=== PATIENT | female | born 1930 | race African-American/Black ===

== ENCOUNTER 2020-06-30 15:30 | Inpatient (IN) | payer MEDICARE, OTHER ==
--- NOTE | 2020-06-30 16:37 | CT ---
CT of abdomen and pelvis: 06/30/2020 COMPARISON: None available HISTORY: Nausea, vomiting, abdominal pain TECHNIQUE: Axial CT imaging at 5 mm intervals from lung bases through pubic symphysis without contras t. Coronal reformatted imaging obtained. FINDINGS: Lack of contrast media limits assessment of the viscera, bowel, vascular structures, and fo r lymphadenopathy. There is a partially visualized groundglass nodule within the right lower lobe on axial image 1 measu ring 1 cm. No free intraperitoneal air or fluid is seen. There is a small hypodense lesion within the left lobe of the liver on axial image 14, too small to c haracterize, measuring in the 5 mm range. Multiple calcified stones are noted within the gallbladder lumen. The spleen, pancreas, adrenal glands, and kidneys demonstrate no acute findings. No nephrolithiasis o r evidence of obstructive uropathy is seen on either side. Limited assessment of the bowel demonstrates no evidence for inflammatory change or obstruction. Sigmoid diverticulosis present with no evidence for diverticulitis. Review of the osseous structures demonstrates multilevel lower lumbar spine facet hypertrophic change . Multilevel disc space narrowing degenerative endplate change and osteophyte formation noted, most pro minent at L4-5. IMPRESSION: No nephrolithiasis or obstructive uropathy. 1 cm groundglass nodule within the right lower lobe for which follow-up nonemergent chest CT is advis ed. Cholelithiasis.
[2020-06-30] MEDS ORDERED: Ondansetron PF 4 MG/2 ML Vial IVP PRN (16:58)
[2020-06-30] MEDS ORDERED: Guaifenesin DM 100-10/5 ML UDCUP PO PRN (16:58)
--- NOTE | 2020-06-30 17:32 | HP ---
REASON FOR ADMISSION: Severe dehydration, gastroenteritis, acute kidney injury, anemia. HISTORY OF PRESENTING ILLNESS: The patient gives history of having severe diarrhea, which started this morning. She had multiple episodes and finally became incontinent as she got tired going to the restroom. She got into shower finally to get a good bath, but got dizzy. She managed to come out and called out for help. They tried to take her to her bedroom, but she was very weak and the daughter made her lie on the floor in a safe manner without fall. The patient also admits to vomiting nearly 3 times. No blood in the stool or vomitus. No other family members have had these symptoms. No exposure to COVID as far as she knows. She is currently living with her daughter for last 3 months or so. Prior to that, she was living in [place] in her own apartment. She has had prior colonoscopy, but she does not recall how far back. There was no malignancy noted in any of her previous colonoscopies. PAST MEDICAL AND SURGICAL HISTORY: History of CHF, GERD, hypertension, C-spine surgery, hysterectomy. CURRENT MEDICATIONS: The patient is on, 1. Candesartan/hydrochlorothiazide 32/12.5 mg daily. 2. Hydralazine 50 mg three times daily. 3. Omeprazole 20 mg daily. 4. Amlodipine 10 mg daily. 5. Lasix 20 mg daily. ALLERGIES: NO KNOWN DRUG ALLERGIES. PERSONAL HISTORY: Does not abuse alcohol or drugs. No history of smoking. She is currently living with her daughter. FAMILY HISTORY: Mother in her 60s. She had history of stroke. Father at the age of 98. He had history of acute renal failure before . The patient ambulates with a cane in the house. CODE STATUS: Full. Power of attorney general is her daughter, Ms. Bri Hernandez. REVIEW OF SYSTEMS: CONSTITUTIONAL: Negative for weight loss or gain, ability to conduct usual activities. SKIN: Negative for rash, itching. EYES: Negative for double vision, pain. ENT/MOUTH: Negative for nose bleeding, neck stiffness, pain, tenderness. CARDIOVASCULAR: Negative for palpitations, dyspnea on exertion, orthopnea. RESPIRATORY: Negative for shortness of breath, wheezing, cough, hemoptysis, fever or night sweats. GASTROINTESTINAL: Negative for poor appetite, abdominal pain, heartburn, nausea, vomiting, constipation, or diarrhea. GENITOURINARY: Negative for urgency, frequency, dysuria, nocturia. MUSCULOSKELETAL: Negative for pain, swelling. NEUROLOGIC/PSYCHIATRIC: Negative for anxiety, depression. ALLERGY/IMMUNOLOGIC: Negative for skin rash, bleeding tendency. PHYSICAL EXAMINATION: GENERAL: The patient is an 89-year-old female, who is currently not in any acute distress. VITAL SIGNS: Blood pressure 140/80, pulse 66 per minute, respiratory rate 16 per minute, temperature 97.5 degrees Fahrenheit, and saturating 100% on room air. NECK: Supple. No elevated JVD. HEENT: Eyes; extraocular muscles intact. Pupils reacting to light. Oral cavity, mucous membranes are dry. No exudates or congestion. CARDIOVASCULAR: S1 and S2 heard. Murmur plus. RESPIRATORY: Air entry 1+ bilateral. Scattered rhonchi. No rales or wheezes. ABDOMEN: Soft. Bowel sounds heard. No tenderness, rigidity, or guarding. EXTREMITIES: No peripheral edema or calf tenderness. VASCULAR: Peripheral pulses 1+ bilateral. No ischemic ulcers or gangrene. CENTRAL NERVOUS SYSTEM: No gross focal motor deficits noted. The patient is alert and oriented well. PSYCHIATRIC: The patient's mood is euthymic. No hallucinations or delusions. LABORATORY DATA: White count of 15, H and H 7.7 and 25, platelet count is 431, MCV is 102 with 83% neutrophils. Serum bicarb 23, BUN 46, creatinine 2.1, serum bicarb 23, serum glucose 166. BNP 485. Liver enzymes within normal limits. UA is negative for any infection. CT of the abdomen and pelvis without contrast done showed no nephrolithiasis or obstructive uropathy. There is 1 cm ground-glass nodule in the right lower lobe. Cholelithiasis was seen. Degenerative disk disease was seen. Sigmoid diverticulosis without evidence of diverticulitis. CT brain without contrast done showed possible meningioma in the region of the planum sphenoidale/cribriform plate. There were no other acute findings. CLINICAL IMPRESSION AND PLAN: The patient will be admitted to telemetry for severe dehydration with gastroenteritis and acute kidney injury. The patient does not recollect what her previous hemoglobin levels were. Her current level is 7.7 g and we will obtain q.6 hourly H and H. She will be on Protonix 40 mg IV q.12. We will also obtain stool studies including C diff. COVID-19 viral PCR will also be obtained. She will be on Cipro and Flagyl for possible gastroenteritis. None of her family members have had similar diarrhea or vomiting. We will continue her on Norvasc, hydralazine, and gently hydrate her with lactated Ringer's at 100 mL per hour. This is in view of her BNP being around 450. She will need close monitoring on telemetry, so as not to overload her with history of CHF and current severe dehydration and acute kidney injury. Job ID: [id number]
[2020-06-30 17:58] LABS: Iron Binding Capacity, Total 158 mcg/dL (265-497)
[2020-06-30 17:59] LABS: Iron 49 ug/dL (50-170)
[2020-06-30 18:27] LABS: Ferritin 599.41 ng/mL (10-291)
[2020-06-30 20:30] LABS: Hemoglobin 7.9 g/dL (12.0-16.0)
[2020-06-30] MEDS: hydrALAZINE 25 MG TAB PO SCH ×2 (21:15→21:29)
[2020-06-30] MEDS: Lactated Ringer's 1,000 ML IV SCH (21:20)
[2020-06-30] MEDS: metroNIDAZOLE 250 MG in Admixture Fee 2 EACH IVPB SCH (21:20)
[2020-06-30] MEDS: Pantoprazole 40 MG VIAL IVP SCH (21:29)
[2020-06-30] MEDS: Ciprofloxacin Lactate/D5W 200 MG in Premix Bag 1 BAG IVPB SCH (22:50)
[2020-07-01] MEDS: Acetaminophen 325 MG TAB PO PRN ×3 (03:05→23:24)
[2020-07-01] MEDS: Calcium Carbonate 500 MG ChewTAB PO PRN (03:10)
[2020-07-01 05:32] LABS: Anion Gap 16 mmol/L (10-20); BUN (Urea Nitrogen) 41 mg/dL (9.8-20.1); Calc. Creatinine Clearance 24 mL/min (70-130); Calcium 9.1 mg/dL (7.8-10.44); Carbon Dioxide 21 mmol/L (23-31); Chloride 107 mmol/L (98-107); Estimated GFR-MDRD 30; Glucose 154 mg/dL (83-110); Potassium 4.3 mmol/L (3.5-5.1); Sodium 140 mmol/L (136-145)
[2020-07-01 05:33] LABS: Hemoglobin 7.5 g/dL (12.0-16.0)
[2020-07-01] MEDS: metroNIDAZOLE 250 MG in Admixture Fee 2 EACH IVPB SCH ×3 (05:40→22:41)
[2020-07-01] MEDS: Lactated Ringer's 1,000 ML IV SCH ×2 (05:58→09:09)
[2020-07-01] MEDS: Amlodipine 10 MG TAB PO SCH (08:49)
[2020-07-01] MEDS: Cyanocobalamin (Vitamin B-12) 1,000 MCG TAB PO SCH (08:49)
[2020-07-01] MEDS: Ascorbic Acid 500 mg Chewable Tablet PO SCH (08:49)
[2020-07-01] MEDS: Pantoprazole 40 MG VIAL IVP SCH (08:50)
[2020-07-01] MEDS: Enoxaparin Sodium 30 MG/0.3 ML SYRINGE SC SCH (08:50)
[2020-07-01] MEDS: hydrALAZINE 25 MG TAB PO SCH ×4 (08:50→21:36)
[2020-07-01] MEDS ORDERED: Amlodipine 5 MG TAB PO SCH (09:00)
[2020-07-01] MEDS: Ciprofloxacin Lactate/D5W 200 MG in Premix Bag 1 BAG IVPB SCH ×2 (09:55→21:36)
--- NOTE | 2020-07-01 10:57 | PDOC.HOSPP ---
- Subjective Encounter Date: 07/01/20 Encounter Time: 10:00 Subjective: no further diarrhea or vomiting after hospitalization has not been able to provide a stool sample due to above no sob or chest pain feels good this morning - Objective Vital Signs & Weight: Vital Signs (12 hours) Temp Pulse Resp BP BP Pulse Ox 07/01/20 08:51 78 07/01/20 08:50 78 156/72 H 07/01/20 08:49 78 156/72 H 07/01/20 08:30 68 18 156/72 H 99 07/01/20 03:10 99 F 78 21 H 158/61 H 99 07/01/20 00:06 98.6 F 78 16 149/62 H 98 Weight Weight 164 lb 11.2 oz I&O: 06/30/20 07/01/20 07/02/20 06:59 06:59 06:59 Intake Total 1040 Output Total 400 Balance 640 Result Diagrams: 07/01/20 04:46 07/01/20 04:46 Hospitalist ROS - Medication Medications: Active Medications Generic Name Dose Route Start Last Admin Trade Name Freq PRN Reason Stop Dose Admin Acetaminophen 650 mg 06/30/20 16:58 07/01/20 03:05 Tylenol PO 650 mg Q4H PRN Administration Headache/Fever/Mild Pain (1-3) Amlodipine Besylate 5 mg 07/01/20 09:00 07/01/20 08:51 Norvasc PO Not Given DAILY [facility] Amlodipine Besylate 10 mg 07/01/20 09:00 07/01/20 08:49 Norvasc PO 10 mg DAILY [facility] Administration Ascorbic Acid 500 mg 07/01/20 09:00 07/01/20 08:49 Vitamin C PO 500 mg DAILY [facility] Administration Calcium Carbonate 1,000 mg 06/30/20 16:58 07/01/20 03:10 Tums PO 1,000 mg Q4H PRN Administration Heartburn or Indigestion Cyanocobalamin 1,000 mcg 07/01/20 09:00 07/01/20 08:49 Vitamin B-12 PO 1,000 mcg DAILY [facility] Administration Enoxaparin Sodium 30 mg 07/01/20 09:00 07/01/20 08:50 Lovenox SC 30 mg 899 [facility] Administration Hydralazine HCl 25 mg 06/30/20 21:00 07/01/20 08:51 Apresoline PO Not Given BID GUERA Hydralazine HCl 50 mg 06/30/20 21:00 07/01/20 08:50 Apresoline PO 50 mg TID GUERA Administration Ciprofloxacin/Dextrose 200 mg/ 100 mls @ 100 mls/hr 06/30/20 21:00 07/01/20 09:55 Device IVPB 100 mls Q12HR [facility] Administration Lactated Ringer's 1,000 mls @ 100 mls/hr 06/30/20 17:00 07/01/20 09:09 Lactated Ringer's IV 1,000 mls .Q10H [facility] Administration Metronidazole 250 mg/ 50 mls @ 100 mls/hr 06/30/20 22:00 07/01/20 05:40 Miscellaneous Medication IVPB 50 mls Q8HR [facility] Administration Pantoprazole Sodium 40 mg 06/30/20 21:00 07/01/20 08:50 Protonix IVP Not Given Q12HR [facility] Pantoprazole Sodium 40 mg 07/01/20 09:00 07/01/20 08:49 Protonix PO 40 mg DAILY [facility] Administration - Exam General Appearance: awake alert Eye: PERRL, anicteric sclera ENT: no oropharyngeal lesions, moist mucosa Neck: supple, no JVD Heart: RRR, no murmur Respiratory: no wheezes, no rales Gastrointestinal: soft, non-tender, non-distended, normal bowel sounds, no guarding, no rigidity Extremities: no cyanosis, no edema Neurological: cranial nerve grossly intact, no focal deficits Psychiatric: normal affect, A&O x 3 Hosp A/P (1) Acute gastroenteritis Code(s): K52.9 - NONINFECTIVE GASTROENTERITIS AND COLITIS, UNSPECIFIED Status : Acute (2) JOLIE (acute kidney injury) Code(s): N17.9 - ACUTE KIDNEY FAILURE, UNSPECIFIED Status: Acute (3) Moderate dehydration Code(s): E86.0 - DEHYDRATION Status: Resolved (4) H/O CHF Code(s): Z86.79 - PERSONAL HISTORY OF OTHER DISEASES OF THE CIRCULATORY SYSTEM Status: Chronic (5) HTN (hypertension) Code(s): I10 - ESSENTIAL (PRIMARY) HYPERTENSION Status: Chronic Qualifiers: Hypertension type: essential hypertension Qualified Code(s): I10 - Essential (primary) hypertension (6) Dyslipidemia Code(s): E78.5 - HYPERLIPIDEMIA, UNSPECIFIED Status: Chronic - Plan is on empiric cipro and flagyl no stool sample yet likely viral etiology with self resolution of diarrhea, will await if starts out again solid diet, stop iv fluids likely might have ckd, unclear baseline creatinine to ambulate in hallway as tolerated covid 19 pcr is pending, has no other symptoms to suggest it. dc plan in am if stable
[2020-07-01 11:16] LABS: Hemoglobin 7.5 g/dL (12.0-16.0)
[2020-07-01 11:19] VITALS: BMI 28.3
[2020-07-01 12:40] LABS: SARS-CoV-2 MS2 Positive; SARS-CoV-2 N Gene Negative; SARS-CoV-2 S Gene Negative; SARS-CoV-2 by NAA Not Detected (NotDetected); SARS-CoV-2 orf1ab Negative
[2020-07-02] MEDS: Calcium Carbonate 500 MG ChewTAB PO PRN (02:55)
[2020-07-02 04:46] LABS: Anion Gap 11 mmol/L (10-20); BUN (Urea Nitrogen) 26 mg/dL (9.8-20.1); Calc. Creatinine Clearance 27 mL/min (70-130); Calcium 9.4 mg/dL (7.8-10.44); Carbon Dioxide 24 mmol/L (23-31); Chloride 108 mmol/L (98-107); Estimated GFR-MDRD 35; Glucose 138 mg/dL (83-110); Potassium 4.2 mmol/L (3.5-5.1); Sodium 139 mmol/L (136-145)
[2020-07-02] MEDS: metroNIDAZOLE 250 MG in Admixture Fee 2 EACH IVPB SCH (05:46)
[2020-07-02] MEDS: Ciprofloxacin Lactate/D5W 200 MG in Premix Bag 1 BAG IVPB SCH (09:56)
[2020-07-02] MEDS: Amlodipine 10 MG TAB PO SCH (09:57)
[2020-07-02] MEDS: Cyanocobalamin (Vitamin B-12) 1,000 MCG TAB PO SCH (09:57)
[2020-07-02] MEDS: Ascorbic Acid 500 mg Chewable Tablet PO SCH (09:58)
[2020-07-02] MEDS: hydrALAZINE 25 MG TAB PO SCH (09:58)
[2020-07-02] MEDS: Enoxaparin Sodium 30 MG/0.3 ML SYRINGE SC SCH (10:13)
[2020-07-02 11:23] VITALS: BP 166/73; TEMP 96.3
--- NOTE | 2020-07-04 00:48 | PQF ---
CLINICAL DOCUMENTATION CLARIFICATION FORM: Dear : Michael Ruiz Date / Time: 07/04/2046 Please exercise your independent, professional judgment in responding to the clarification form. Clinical indicators are provided on the bottom of this form for your review Please check appropriate box(es): HEART FAILURE: TYPE: [ ] Systolic / HFrEF [ x ] Diastolic / HFpEF [ ] Combined Systolic / Diastolic [ ] Other diagnosis [ ] Unable to determine Physician Signature: Date/Time: For continuity of documentation, please document condition throughout progress notes and discharge summary. Thank You. To be completed by CDI/Coding staff for physician review: Present Clinical Indicators - Signs / Symptoms / Labs Results and Location in Medical Record [X] BP 145/64, Pulse 77 Resp 20, Temp 97.8 Vital signs 06/30 [X] TTE Impression: Mitral regurgitation, Tricuspic Regurgitation Cardiac procedure 07/01 Dr Dubon [X] EF is visually estimated 60-65% Cardiac procedure 07/01 Dr Dubon [X] BNP 485 Laboratory 06/30 [X] Not to overload H&P Dr Ruiz 06/30 Present Risk Factors Results and Location in Medical Record [X] 89 year-old Female H&P Dr Ruiz 06/30 [X] HTN H&P Dr Ruiz 06/30 [X] Hx of CHF H&P Dr Ruiz 06/30 Present Treatments Results and Location in Medical Record [X] Lovenox 30 mg SC DEC 27 [X] Apresoline 50 mg oral DEC 27 [X] TTE Cardiac procedure 07/01 Dr Dubon [X] Telemetry monitoring Ordered Dr Ruiz 03/30 CDS/Learning Coordinator Signature: Anahi Escobar Phone #: ext [phone] Date/Time: 07/04/202046 This is a permanent part of the Medical Record [facility]
--- NOTE | 2020-07-04 00:49 | PQF ---
CLINICAL DOCUMENTATION CLARIFICATION FORM: Dear : Michael Ruiz Date / Time: 07/04/20 0048 Please exercise your independent, professional judgment in responding to the clarification form. Clinical indicators are provided on the bottom of this form for your review Please check appropriate box(es): [ ] Protein Calorie Malnutrition: [ ] Mild [ ] Moderate [ ] Severe [ ] Other Malnutrition (please specify) __ [ ] Underweight without malnutrition [ ] Cachexia [ ] Other diagnosis [ x ] Unable to determine In addition, please specify: Present on Admission (POA): [ ] Yes [ ] No [ ] Unable to determine Physician Signature: Date/Time: For continuity of documentation, please document condition throughout progress notes and discharge summary. Thank You. To be completed by CDI/Coding staff for physician review: Present Clinical Indicators - Signs / Symptoms / Labs Results and Location in Medical Record [X] BP 145/64, Pulse 77 Resp 20, Temp 97.8 Vital signs 06/30 [X] Having severe diarrhea H&P Dr Ruiz 06/30 [X] BMI 28.4 Nutritional assessment Dietitian Erin 07/01 [X] unsure weight loss Nutritional assessment Dietitian Erin 07/01 [X] Poor appetite Nutritional assessment Dietitian Erin 07/01 [X] KCAL not met Nutritional assessment Dietitian Erin 07/01 Present Risk Factors Results and Location in Medical Record [X] HTN H&P Dr Ruiz 06/30 [X] Hx of CHF H&P Dr Ruiz 06/30 [X] GERD H&P Dr Ruiz 06/30 [X] 89 year-old Female H&P Dr Ruiz 06/30 [X] JOLIE H&P Dr Ruiz 06/30 [X] Dehdyration H&P Dr Ruiz 06/30 Present Treatments Results and Location in Medical Record [X] Dietary consult Nutritional assessment Dietitian Erin 07/01 [X] Nutritional supplements Nutritional assessment Dietitian Erin 07/01v [X] Weight Monitoring Nutritional assessment Dietitian Erin 07/01 [X] Oral intake monitoring Nutritional assessment Dietitian Erin 07/01 [X] Appetite stimulant - medication Nutritional assessment Dietitian Erin 07/01 CDS/Bill Checker Signature: Anahi Escobar Phone #: ext [phone] Date/Time: 07/04/2020 0048 Moderate Malnutrition (in acute illness) ? Energy Intake: <75% of estimated energy requirement for > 7 days ? Weight Loss: 1-2%/1 week; 5%/ 1 month; 7.5%/3 months ? Other: mild body fat loss; mild muscle mass loss; mild fluid accumulation; Severe Malnutrition (in acute illness) ? Energy Intake: ? 50% of estimated energy requirement for ? 5 days ? Weight Loss: >2%/1 week; >5%/1 month; >7.5%/3 months ? Other: moderate body fat loss; moderate muscle mass loss; moderate- severe fluid accumulation; measurably reduced workday financials consultant strength Moderate Malnutrition (in chronic illness) ? Energy Intake: <75% of estimated energy requirement for ?1 month ? Weight Loss: 5%/1 month; 7.5%/3 months; 10%/6 months; 20%/1 year ? Other: mild body fat loss; mild muscle mass loss; mild fluid accumulation Severe Malnutrition (in chronic illness) ? Energy Intake: ?75% of estimated energy requirement for ?1 month ? Weight Loss: >5%/1 month; >7.5%/3 months; >10%/6 months; >20%/1 year ? Other: severe body fat loss; severe muscle mass loss; severe fluid accumulation; measurably reduced workday financials consultant strength This is a permanent part of the Medical Record [facility]
--- NOTE | 2020-07-04 13:06 | DIS ---
DATE OF ADMISSION: 06/30/2020 DATE OF DISCHARGE: 07/02/2020 DISCHARGE DISPOSITION: To home. PRIMARY DISCHARGE DIAGNOSES: Acute gastroenteritis, resolved. Acute kidney injury with moderate dehydration secondary to above, resolved. SECONDARY DISCHARGE DIAGNOSES: History of chronic diastolic dysfunction, hypertension, dyslipidemia. PROCEDURES DONE DURING HOSPITALIZATION: Abdominal and pelvic CAT scan done on the day of admission showed no obstructive uropathy. There is incidental findings of 1 cm ground-glass nodule in the right lobe for outpatient workup, cholelithiasis. There is sigmoid diverticulosis with no evidence of diverticulitis. This CAT scan was without contrast. Echo with 2D Doppler done showed EF of 60% to 65%, moderate mitral regurgitation, moderate tricuspid regurgitation. PA systolic pressures were 70 mm. Blood cultures x2, no growth. H and H 7.5 and 24, which has remained the same on four occasions. MCV was 102, platelet count 431 with 83% neutrophils. Discharge BUN and creatinine are 26 and 1.6. Admitting BUN and creatinine is 46 and 2.1. Serum iron 49, TIBC 158, percent saturation 31, ferritin was 599. Vitamin B12 791, folic acid 13. COVID-19 PCR was not detected on 06/30/2020. DISCHARGE MEDICATION: 1. Norvasc 10 mg p.o. daily. 2. Eliquis 2.5 mg twice daily. 3. Vitamin C 500 mg p.o. daily. 4. Candesartan with hydrochlorothiazide 32/12.5 mg daily. 5. Vitamin B12 1000 mcg p.o. daily. 6. Furosemide 20 mg daily. 7. Hydralazine 50 mg 3 times daily. 8. Omeprazole 20 mg daily. 9. Ciprofloxacin 250 mg twice daily for 3 days. 10. Flagyl 250 mg 3 times daily for 3 days. ALLERGIES: NO KNOWN DRUG ALLERGIES. DISCHARGE PLAN: The patient to follow up with her primary care physician, Dr. Ashok Anderson in 1 week. BRIEF COURSE DURING HOSPITALIZATION: The patient initially came in with complaints of profuse diarrhea and intractable nausea and vomiting. In view of this history, patient was admitted to telemetry. She has had a BNP of 400 with acute kidney injury and current dehydration needing close monitoring on telemetry. She was gently hydrated during her stay. Her renal function has recovered. Her H and H have remained stable at the same levels. The patient likely will need outpatient GI workup in the outpatient setting. Her ferritin was elevated. The patient did not have any diarrheal episodes after hospitalization and could not give a stool sample for workup. She has been tolerating oral solid diet and ambulating. In view of this, the patient is being discharged home. She needs to continue Cipro and Flagyl for another 3 days. Please note, I have seen and examined the patient on the day of discharge. Job ID: [id number]
== END 2020-07-02 13:11 | disposition home or self-care (01) | DRG 683 ==
LOC: ERS 15:30 → OBSVTOIN 16:32 → 2SW 16:32 → 2NO 07-01 18:40
PROVIDERS: ADMIT Internal Medicine; ATTEND Internal Medicine
PROC: 3E0234Z Introduction of Serum, Toxoid and Vaccine into Muscle, Percutaneous Approach (ICD-10-PCS; principal; 2020-07-01)
DX: N17.9 Acute kidney failure, unspecified (principal); I50.32 Chronic diastolic (congestive) heart failure; A08.4 Viral intestinal infection, unspecified; E86.0 Dehydration; Z20.828 Contact with and (suspected) exposure to other viral communicable diseases; I11.0 Hypertensive heart disease with heart failure; K21.9 Gastro-esophageal reflux disease without esophagitis; I08.1 Rheumatic disorders of both mitral and tricuspid valves; Z23 Encounter for immunization; Z90.710 Acquired absence of both cervix and uterus; Z79.899 Other long term (current) drug therapy; Z79.01 Long term (current) use of anticoagulants
CPT/HCPCS: 36415; 74176; 80048; 82607; 82728; 82746; 83540; 83550; 85014; 85018; 86850; 86900; 86901; 87040; 87635; 90471; 90732; 93005; 93306; 96360; C9113; G0009; J0744; J1650; U0003